=== PATIENT | female | born 1955 | race African-American/Black ===

== ENCOUNTER 2017-04-28 01:30 | Emergency (ER) | payer OTHER ==
[~2017-04-28] VITALS: Ht 152.4 cm; Wt 58.0 kg
--- NOTE | ~2017-04-28 | CT2 ---
[facility] A Service of [facility] & [facility] RADIOLOGY TEXT RESULTS PATIENT: BRYANNA HAMEED LOCATION: [facility] : 51 UNIT #: [id number] AGE: [address]: SUKHI VIGIL APRN SEX: F ORDER DR: [id number] [facility] [place] [facility]. [place], [place] [address] [id number] MR#: [id number] Acc #: [id number] NAME: BRYANNA HAMEED : 1955 SEX: F STUDY DATE/TIME: 04/28/2017 3:07 UNIT: [facility] ROOM: STUDY DESCRIPTION: CT Abd and Pelv W Cont Attending Physician: Sukhi Vigil Aprn Ordering Physician: Sukhi Vigil Aprn Primary Care Physician: Noa Lockett M.D. MEDICAL IMAGING REPORT This report is preliminary unless electronic signature is present EXAM CT abdomen and pelvis with contrast, 04/28/2017 HISTORY 61-year-old female in the ED complaining of qyc-ii-ypquz abdomen pain beginning about 4 hours prior to arrival. Nausea and vomiting. TECHNIQUE CT examination of the abdomen and pelvis with IV contrast. GI contrast was not ordered. This CT exam was performed with one or more of the following radiation dose reduction techniques: Automatic exposure control, adjustment of mA and/or kV according to patient size, and iterative reconstruction. FINDINGS ABDOMEN FINDINGS: 4 mm obstructing calculus in the distal right ureter near the UVJ causing moderately severe right side hydronephrosis. Kidneys, ureters and bladder are otherwise negative. Nondistended gallbladder. No bile duct dilatation. Liver, pancreas and spleen appear normal. Small bowel and colon are normal in caliber and appearance, as imaged. The appendix is not clearly seen, but there is no indirect CT evidence of acute appendicitis. PELVIS FINDINGS: Hysterectomy. Bladder and rectum are negative. No inguinal hernia. Limited lung base images show no active disease in the lower chest. IMPRESSION 1. Obstructing 4 mm right distal ureter calculus at the UVJ causing moderately severe right hydronephrosis. 2. The remainder of the examination is negative. [facility] A Service of [facility] & [facility] RADIOLOGY TEXT RESULTS PATIENT: BRYANNA HAMEED LOCATION: [facility] : 51 UNIT #: [id number] AGE: [address]: SUKHI VIGIL APRN SEX: F ORDER DR: 3. Hysterectomy. Dictated by... Hayes Oneill M.D. THIS IS AN ELECTRONICALLY VERIFIED REPORT Hayes Oneill M.D. at 04/28/2017 9:58 PM VIRIDIANA/sosa TD: 04/28/2017 13:09 JOB #: [id number] MEDICAL IMAGING REPORT Page 1 of 1 COPY
[2017-04-28] MEDS ORDERED: PAXIL30 MG PO (01:37)
[2017-04-28] MEDS ORDERED: NORVASC PO (01:37)
[2017-04-28 02:20] LABS: BASOPHIL% 0.5 % (0-2.5); EOSINOPHIL% 0.4 % (0.0-7.0); HEMATOCRIT 37.6 % (35.0-45.0); HEMOGLOBIN 12.4 gm/dL (12.0-16.0); LYMPHOCYTE# 1.8 X10e3 (1.0-3.5); LYMPHOCYTE% 16.8 % (17.0-45.0); MEAN CELL VOLUME 83.1 FL (83-96); MEAN CORPUSCULAR HEMOGLOBIN 27.5 PG (28-34); MEAN CORPUSCULAR HGB CONC 33.1 g/dL (30-36); MEAN PLATELET VOLUME 7.9 FL (6.5-11.5); MONOCYTE# 0.6 X10e3 (0-1.0); MONOCYTE% 5.8 % (3.0-12.0); NEUTROPHIL% 76.5 % (40-75); PLATELET COUNT 238 X10e3 (140-420); RED BLOOD COUNT 4.52 X10e (3.90-5.30); RED CELL DISTRIBUTION WIDTH 13.8 % (11.0-15.5); WHITE BLOOD COUNT 10.5 X10e3 (4.0-10.5)
[2017-04-28 02:21] LABS: URINE APPEARANCE CLEAR; URINE BILIRUBIN NEG (NEG); URINE BLOOD NEG (NEG); URINE COLOR YELLOW; URINE GLUCOSE 250 MG/DL (NEG); URINE KETONE 1+ (NEG); URINE LEUKOCYTE ESTERASE TRACE (NEG); URINE NITRATE NEG (NEG); URINE PROTEIN NEG (NEG); URINE SPECIFIC GRAVITY 1.012 (1.003-1.035); URINE UROBILINOGEN 0.2 MG/DL (NEG)
[2017-04-28 02:22] LABS: DIFF IND NO
[2017-04-28 02:24] LABS: URINE BACTERIA AUWI NEG (NEGATIVE); URINE SQUAMOUS EPITHELIAL CELL NONE SEEN /[HPF]
[2017-04-28 02:31] LABS: CULTURE INDICATED? NO
[2017-04-28 02:42] LABS: ALBUMIN SERUM 4.4 g/dL (3.5-5.0); BILIRUBIN, DIRECT 0.1 mg/dL (0.0-0.2); BILIRUBIN,INDIRECT 0.8 mg/dL (0.0-0.9); BILIRUBIN,TOTAL 0.9 mg/dL (0.2-2.0); BUN/CREATININE RATIO 18.88; CALCIUM SERUM 9.1 mg/dL (8.4-10.2); CREATININE SERUM 0.9 mg/dL (0.6-1.4); GLOM FILT RATE Estimated 78.9 mL/min (>60); POTASSIUM 3.1 mmol/L (3.5-5.1); PROTEIN TOTAL SERUM 7.8 g/dL (6.0-8.3)
== END 2017-04-28 05:15 | disposition home or self-care (01) ==
LOC: CED 01:30
PROVIDERS: Nurse Practitioner Family
DX: N13.2 Hydronephrosis with renal and ureteral calculous obstruction (principal); I10 Essential (primary) hypertension; Z90.710 Acquired absence of both cervix and uterus; Z88.2 Allergy status to sulfonamides; Z79.899 Other long term (current) drug therapy
CPT/HCPCS: 36415; 74177; 80048; 80076; 81003; 82150; 83690; 85025; 96361; 96374; 96375; 99284; J1885; J2270; J2405; Q9967